=== PATIENT | male | born 1960 | race African-American/Black ===

== ENCOUNTER → 2023-09-25 06:49 | Outpatient (REF) | payer MEDICARE, OTHER, SELFPAY | LOC: MRI 3T 06:49 | PROVIDERS: ATTENDING PHYSICIAN Specialist; FAMILY PHYSICIAN Family Medicine | DX: M25.512 Pain in left shoulder (principal) | CPT/HCPCS: 73221 ==

== ENCOUNTER → 2023-12-15 07:21 | Outpatient (REF) | payer MEDICARE, OTHER, SELFPAY | LOC: HWRAD 07:21 | PROVIDERS: ATTENDING PHYSICIAN Specialist; FAMILY PHYSICIAN Family Medicine | DX: M25.512 Pain in left shoulder (principal) | CPT/HCPCS: 73200 ==